=== PATIENT | male | born 1960 | race Caucasian/White ===

== ENCOUNTER 2017-10-26 14:13 | Emergency (ER) | payer BC ==
[~2017-10-26] VITALS: Ht 162.6 cm; Wt 88.6 kg
[2017-10-26 15:16] LABS: BASOPHILS % (AUTO) 0.5 % (0-1); EOSINOPHILS % (AUTO) 0.3 % (0-6); HEMOGLOBIN 16.9 g/dl (14.0-17.9); LYMPHOCYTES # (AUTO) 0.6 X10'3 (1.1-4.8); LYMPHOCYTES % (AUTO) 5.9 % (21-51); MEAN CORPUSCULAR HEMOGLOBIN 30.3 PG (27.0-31.0); MEAN CORPUSCULAR HGB CONC 34.4 % (33.0-36.5); MEAN PLATELET VOLUME 8.3 FL (7.4-10.4); MONOCYTES # (AUTO) 0.9 X10'3 (0-0.9); NEUTROPHILS # (AUTO) 8.5 X10'3 (1.8-7.7); NEUTROPHILS % (AUTO) 84.3 % (42-75); PARTIAL THROMBOPLASTIN TIME 31 SECONDS (22-32); PLATELET COUNT 215 X10'3 (140-440); PROTHROMBIN TIME 10.4 SECONDS (9.0-12.0); RED BLOOD COUNT 5.56 X10'6 (4.70-6.10); RED CELL DISTRIBUTION WIDTH 12.9 % (11.5-14.5); WHITE BLOOD COUNT 10.1 X10'3 (4.5-11.0)
[2017-10-26 15:21] LABS: ALANINE AMINOTRANSFERASE 39 U/L (12-78); ALBUMIN 3.8 G/DL (3.4-5.0); ALKALINE PHOSPHATASE 77 IU/L (46-116); ANION GAP 9 (8-16); ASPARTATE AMINO TRANSFERASE 33 U/L (10-37); BILIRUBIN,TOTAL 0.8 MG/DL (0.1-1.0); BLOOD UREA NITROGEN 9 MG/DL (7-18); BUN/CREATININE RATIO 7.9 (5.4-32.0); CALCIUM 8.5 MG/DL (8.5-10.1); CHLORIDE 100 MMOL/L (99-107); CREATININE 1.14 MG/DL (0.60-1.10); GLUCOSE 123 MG/DL (70-104); SODIUM 139 MMOL/L (135-145); TOTAL CARBON DIOXIDE 30.1 MMOL/L (24-32); TOTAL PROTEIN 7.8 G/DL (6.4-8.2); eGFR 66 ML/MIN
[2017-10-26 15:27] LABS: POTASSIUM 2.6 MMOL/L (3.5-5.1)
[2017-10-26] MEDS ORDERED: magnesium 2GM in 50ml NS 50 ML IV ONE (16:00)
[2017-10-26] MEDS ORDERED: potassium Cl 20 mEq SR tablet PO ONE (16:00)
[2017-10-26] MEDS ORDERED: oseltamivir phos 75mg capsule PO ONE (16:40)
[2017-10-26] MEDS: potassium 10mEq/100ml NS w/LIDOcaine (10mg/bag) IV SCH ×2 (17:16→18:20)
[2017-10-26] MEDS ORDERED: AZIT-63 PO (19:03)
[2017-10-26] MEDS ORDERED: POTA20TA19 PO (19:03)
[2017-10-26] MEDS ORDERED: TAM75C PO (19:03)
[2017-10-26 19:59] VITALS: BP 132/88
== END 2017-10-26 20:01 | disposition home or self-care (01) ==
LOC: ER 14:15
DX: E87.6 Hypokalemia (principal); J11.1 Influenza due to unidentified influenza virus with other respiratory manifestations; E78.00 Pure hypercholesterolemia, unspecified; I10 Essential (primary) hypertension; Z79.899 Other long term (current) drug therapy
CPT/HCPCS: 36415; 71010; 80053; 84484; 85025; 85610; 85730; 93005; 96365; 96366; 96368; 99285; J3475; J3480